=== PATIENT | female | born 1985 | race Caucasian/White ===

== ENCOUNTER → 2018-02-21 | Outpatient (CLI) | payer SELFPAY ==
--- NOTE | 2018-02-21 09:15 | Diagnostic Imaging Report ---
INDICATION: Right upper quadrant pain, nausea. TECHNIQUE: Multiple grayscale sonographic images were obtained of the right upper quadrant of the abdomen. CORRELATION STUDY: None FINDINGS: LIVER: There is uniform echotexture within the visualized portions of the liver. Liver length of 15.6 cm. GALLBLADDER: The gallbladder is significantly contracted despite being in a reported fasting state. No definitive shadowing gallstones. Gallbladder wall remains within normal limits despite the contracture. COMMON BILE DUCT: Nondilated at 3 mm. PANCREAS: Largely obscured. RIGHT KIDNEY: Measures 10.8 cm. No hydronephrosis. AORTA/IVC: Not well visualized. OTHER: None. IMPRESSION: 1. Gallbladder is largely contracted, limiting assessment. However, no findings to suggest significant cholelithiasis or bile duct dilatation. Dictated by: Dictated on workstation # [id number]
== END ==
LOC: RAD 08:31
PROVIDERS: ATTEND Nurse Practitioner Family
DX: K82.0 Obstruction of gallbladder (principal)
CPT/HCPCS: 76705

== ENCOUNTER → 2018-04-04 | Outpatient (CLI) | payer SELFPAY ==
[~2018-04-04] MED LIST: CATHETER FLUSH 10 ML SYR IV PRN
--- NOTE | 2018-04-04 14:36 | Diagnostic Imaging Report ---
INDICATION: Abdominal pain. EXAMINATION: Hepatobiliary scan. TECHNIQUE: 5.4 mCi of technetium 99m Choletec was given for the uptake. 8 ounces of Ensure was given 45 minutes into the exam for the ejection fraction. FINDINGS: There Is homogeneous uptake of isotope throughout the liver. The cystic duct and common duct are both patent. The gallbladder ejection fraction is calculated at 60%. IMPRESSION: Normal hepatobiliary scan and gallbladder ejection. Dictated by: Dictated on workstation # [id number]
== END ==
LOC: CARD 11:32
PROVIDERS: ATTEND Nurse Practitioner Family
DX: R10.11 Right upper quadrant pain (principal)
CPT/HCPCS: 78227

== ENCOUNTER → 2019-03-06 | Outpatient (CLI) | payer OTHER ==
--- NOTE | 2019-03-06 13:47 | Diagnostic Imaging Report ---
Indication: Palpable lumps in the left breast. No prior studies are available for comparison. 2-D and 3-D bilateral diagnostic mammography was performed with CAD. Both breasts show marked parenchymal heterogeneity and increased density, limiting the sensitivity of mammography. BB markers were placed at the areas of palpable abnormality in the left breast. One location is inferior and mid to posterior depth. Second location is in the lower inner left breast anterior depth. No underlying abnormality is seen. No mass or malignant-appearing microcalcifications are seen. Axillae are unremarkable. Impression: BI-RADS 0 No mammographic features suspicious for malignancy are identified. So, sonographic interrogation of the areas of palpable abnormality in the left breast is recommended and will be performed today. ACR BI-RADS Category 0: Incomplete. (Needs additional imaging evaluation). Result letter will be mailed to the patient. Note: At least 10% of breast cancer is not imaged by mammography. Dictated by: Dictated on workstation # [id number]
--- NOTE | 2019-03-06 19:51 | Diagnostic Imaging Report ---
INDICATION: Palpable lumps in left breast. FINDINGS: Sonographic interrogation of the areas of palpable lumps by the patient was performed. This corresponds to the inferior left breast as well as the lower-inner left breast. No sonographic abnormality is seen. There is heterogeneous breast tissue, but no discrete solid or cystic mass is detected. IMPRESSION: No sonographic abnormality is identified. Close clinical and self breast exam is recommended to confirm stability of the areas of palpable abnormality. ACR BI-RADS Category 1: Negative. Dictated by: Dictated on workstation # [id number]
== END ==
LOC: RAD 12:57
PROVIDERS: ATTEND Nurse Practitioner Family
DX: N63.24 Unspecified lump in the left breast, lower inner quadrant (principal)
CPT/HCPCS: 76642; 77066

== ENCOUNTER → 2019-04-03 | Outpatient (CLI) | payer OTHER ==
[~2019-04-03] MED LIST changes: +ACHD5005 PO; -CATHETER FLUSH 10 ML SYR IV PRN; +CHLO500T4 PO; +CLIN300C11 PO
--- NOTE | 2019-04-03 23:27 | Diagnostic Imaging Report ---
Left breast ultrasound limited. INDICATION: Left breast lump. FINDINGS: The recent left breast ultrasound exam performed on 03/06/2019 failed to show any discrete solid or cystic mass in the area of the patient's palpable abnormality in the lower inner quadrant of the left breast. In the interval since the prior exam, 2 small collections of fluid have developed in the retroareolar region of the left breast. These do not have the appearance of cysts but their precise etiology is not certain. There is still no discrete solid mass identified. However, if clinical concern regarding a palpable abnormality persists, then biopsy should still be considered. Dr. Avendaño was present at the time of this exam. IMPRESSION: A small amount of fluid has developed in the left retroareolar region but there is no discrete solid mass in the region of patient's palpable abnormality. Recommendations as above. ACR BI-RADS Category 1: Negative. Dictated by: Dictated on workstation # [id number]
== END ==
LOC: RAD 08:28
PROVIDERS: ATTEND Surgery
DX: N63.24 Unspecified lump in the left breast, lower inner quadrant (principal)
CPT/HCPCS: 76642

== ENCOUNTER 2019-04-04 11:04 | Outpatient (CLI) | payer OTHER ==
[~2019-04-04] VITALS: Ht 149.9 cm; Wt 54.4 kg
[2019-04-04] MEDS ORDERED: CLIN300C11 PO (13:58)
[2019-04-04] MEDS ORDERED: CHLO500T4 PO (13:58)
[2019-04-05] MEDS ORDERED: ACHD5005 PO (15:34)
== END 2019-04-04 14:02 | disposition home or self-care (01) ==
LOC: PREOP 11:04
PROVIDERS: ATTEND Surgery
DX: Z01.818 Encounter for other preprocedural examination (principal)

== ENCOUNTER 2019-04-05 12:02 | Day surgery (SDC) | payer OTHER ==
[2019-04-05] VITALS (10 sets, daily range): BP systolic 114–132; BP diastolic 73–96
[~2019-04-05] VITALS: Ht 149.9 cm; Wt 54.4 kg
[~2019-04-05 12:02] MED LIST changes: -ACHD5005 PO
[2019-04-05] MEDS ORDERED: LACTATED RINGERS 1,000 ML IV PRN (12:10)
[2019-04-05] MEDS ORDERED: ceFAZolin INJECTION 1,000 MG in WATER (STERILE) FOR INJECTION 10 ML IV ONE (12:15)
[2019-04-05] MEDS ORDERED: WATER (STERILE) FOR INJECTION 10 ML ONE (12:24)
[2019-04-05] MEDS ORDERED: ceFAZolin INJECTION 1,000 MG ONE (12:24)
--- OUTSIDE RECORDS SUMMARY | 2019-04-05 12:26 | XMS REPORT ---
Author Author Migration, Doctor Organization [facility] Address Unknown Phone Unavailable Care Team Providers Care Addictions Recovery Specialist Name Role Phone Migration, Doctor Unavailable Unavailable PROBLEMS Type Condition ICD9-CM Code STN97-KI Code Onset Dates Condition Status SNOMED Code Problem Encounter for removal of intrauterine contraceptive device V25.12 Active [id number] ALLERGIES No Information ENCOUNTERS Encounter Location Date Diagnosis [facility] [address] [id number] [id number] Mar, [facility] [address] [id number] February, Breast mass, left N63.20 and Galactorrhea N64.3 [facility] [address] [place], [place] [id number] [id number] February, [facility] [address] [place] [address] [id number] February, Galactorrhea N64.3 [facility] [address] [address] February, [facility] [address]00565[address] [address] February, Breast mass, left N63.20 and Galactorrhea N64.3 [facility] [address] [facility] [facility] [id number] [id number] Dec, [facility] [address] [id number][place] [id number] Mar, [facility] [address] [id number], [place] [phone] February, RUQ pain R10.11 and Nausea R11.0 [facility] [address] [id number] [id number] Jan, RUQ pain R10.11 and Nausea R11.0 [facility] [address] [id number], [place] [id number] Jan, Gastroenteritis K52.9 ; RUQ pain R10.11 and Nausea R11.[address] [id number], [place] [id number] Nov, Influenza J11.[address] [id number] [place] [id number] Aug, BMI 40.0-44.9, adult Z68.41 ; Pharyngitis, unspecified etiology J02.9 and Cough R05 [address] [id number][place] [id number] Jul, Gastroenteritis and colitis, viral A08.4 [facility] [address] [facility] [id number] [id number] Mar, Other noninfective acute otitis externa of left ear H60.592 and Acute serous otitis media of left ear, recurrence not specified H65.[address] [id number][place] [id number] Mar, Dermatitis L30.9 and Itching L29.9 [facility] [address] [place] [address] Jan, [facility] [address] [id number] [place] [address] Jan, [facility] [id number] [place] [address] Oct, [facility] [address] [address] Oct, [facility] [id number] [place] [address] Jan, [facility] [address] [address] Jan, [facility] [address] [facility] [id number] [place] [address] Sep, [facility] [address] [facility] [id number] [place] [address] Sep, [facility] [address] [facility] [id number] [place] [address] Aug, IMMUNIZATIONS No Known Immunizations SOCIAL HISTORY Never Assessed REASON FOR VISIT [facility]MR-[facility] PLAN OF CARE VITAL SIGNS MEDICATIONS Unknown Medications RESULTS No Results PROCEDURES No Known procedures INSTRUCTIONS MEDICATIONS ADMINISTERED No Known Medications MEDICAL (GENERAL) HISTORY Type Description Date Surgical History No Surgical history information
--- OUTSIDE RECORDS SUMMARY | 2019-04-05 12:27 | XMS REPORT | Continuity of Care Document ---
Author Organization Unknown Address Unknown Allergies Active Description Code Type Severity Reaction Onset Reported/Identified Relationship to Patient Clinical Status Yes No Allergy Information Available [id number] Drug Allergy Unknown N/A 04/04/2018 Medications There is no data. Problems Date Dx Coded Attending Type Code Diagnosis Diagnosed By 09/26/2012 SILVIO CASTELLANO MD 372.03 CONJUNCTIVITIS ACUTE BACTERIAL 09/26/2012 JENNIFER NEAL DO 372.03 CONJUNCTIVITIS ACUTE BACTERIAL 09/26/2012 372.03 CONJUNCTIVITIS ACUTE BACTERIAL 01/24/2013 SILVIO CASTELLANO MD 034.0 PHARYNGITIS STREPTOCOCCUS, GROUP A: BETA HEMOLYTIC 01/24/2013 JENNIFER NEAL DO 034.0 PHARYNGITIS STREPTOCOCCUS, GROUP A: BETA HEMOLYTIC 11/14/2014 JENNIFER NEAL DO V25.09 CONTRACEPTIVE COUNSELING - GENERAL 11/14/2014 JENNIFER NEAL DO V25.12 IUD REMOVAL 02/22/2018 BARNEY OBANDO APRN Ot K82.0 OBSTRUCTION OF GALLBLADDER 03/03/2018 BARNEY OBANDO APRN Ot K82.0 OBSTRUCTION OF GALLBLADDER 04/05/2018 BARNEY OBANDO APRN Ot R10.11 RIGHT UPPER QUADRANT PAIN 04/10/2018 BARNEY OBANDO APRN Ot R10.11 RIGHT UPPER QUADRANT PAIN 08/09/2018 BARNEY OBANDO DEPOSITION OPERATOR Ot K82.0 OBSTRUCTION OF GALLBLADDER 08/09/2018 BARNEY OBANDO APRN Ot R10.11 RIGHT UPPER QUADRANT PAIN 08/10/2018 BARNEY OBANDO DEPOSITION OPERATOR Ot R10.11 RIGHT UPPER QUADRANT PAIN 02/27/2019 BARNEY OBANDO DEPOSITION OPERATOR Ot K82.0 OBSTRUCTION OF GALLBLADDER 02/27/2019 BARNEY OBANDO DEPOSITION OPERATOR Ot R10.11 RIGHT UPPER QUADRANT PAIN 03/06/2019 BARNEY OBANDO DEPOSITION OPERATOR Ot K82.0 OBSTRUCTION OF GALLBLADDER 03/06/2019 BARNEY OBANDO DEPOSITION OPERATOR Ot R10.11 RIGHT UPPER QUADRANT PAIN 03/07/2019 JOSELUIS CRUZ DEPOSITION OPERATOR Ot N63.24 UNSPECIFIED LUMP IN THE LEFT BREAST, LOW Procedures Code Description [place] [address] STREP Fabiola (IN-HOUSE) 01/24/2013 [id number] IUD REMOVAL 11/14/2014 Results Test Result Range TSH w/ FREE T4 - 02/28/19 10:02 TSH 0.61 mIU/L NRG T4, FREE 1.1 ng/dL 0.8-1.8 CBC - 03/08/19 16:26 WHITE BLOOD CELL COUNT 7.0 Thousand/uL 3.8-10.8 RED BLOOD CELL COUNT 4.21 Million/uL 3.80-5.10 HEMOGLOBIN 11.6 g/dL 11.7-15.5 HEMATOCRIT 34.7 % 35.0-45.0 MCV 82.4 fL 80.0-100.0 MCH 27.6 pg 27.0-33.0 MCHC 33.4 g/dL 32.0-36.0 RDW 12.9 % 11.0-15.0 PLATELET COUNT 343 Thousand/uL 140-400 MPV 9.5 fL 7.5-12.5 ABSOLUTE NEUTROPHILS 3710 cells/uL 7548-6334 ABSOLUTE LYMPHOCYTES 2506 cells/uL 850-3900 ABSOLUTE MONOCYTES 413 cells/uL 200-950 ABSOLUTE EOSINOPHILS 364 cells/uL 15-500 ABSOLUTE BASOPHILS 7 cells/uL 0-200 NEUTROPHILS 53 % NRG LYMPHOCYTES 35.8 % NRG MONOCYTES 5.9 % NRG EOSINOPHILS 5.2 % NRG BASOPHILS 0.1 % NRG FSH, SERUM - 03/08/19 16:26 FSH 7.1 mIU/mL NRG LH - 03/08/19 16:26 LH 15.7 mIU/mL NRG CULTURE, ANAEROBIC AND AEROBIC - 03/08/19 16:35 CULTURE, ANAEROBIC BACTERIA W/GRAM STAIN SEE NOTE NRG CULTURE, AEROBIC BACTERIA SEE NOTE NRG Encounters ACCT No. Visit Date/Time Discharge Status Pt. Type Provider Facility Loc./Unit Complaint [id number] 03/08/2019 15:40:00 03/08/2019 23:59:59 [id number] 03/08/2019 15:40:00 Document Registration [id number] 02/28/2019 10:20:00 Document Registration [id number] 03/06/2019 12:57:00 03/06/2019 23:59:59 CLS Outpatient JOSELUIS CRUZ DEPOSITION OPERATOR [facility] RAD BREAST MASS [id number] 04/04/2018 11:32:00 04/04/2018 23:59:59 CLS Outpatient BARNEY OBANDO DEPOSITION OPERATOR [facility] CARD SEE ORDER [id number] 03/10/2018 10:00:00 03/10/2018 23:59:59 CLS Preadmit BARNEY OBANDO DEPOSITION OPERATOR [facility] CARD R10.11 RUQ PAIN [id number] 02/21/2018 08:31:00 02/21/2018 23:59:59 CLS Outpatient BARNEY OBANDO APRN [facility] RAD RUQ PAIN,NAUSEA [id number] 04/04/2019 11:04:00 ACT Outpatient NICOLAS CRAIG DO [facility] PREOP LEFT BREAST ABSCESS [id number] 04/03/2019 08:28:00 ACT Outpatient NICOLAS CRAIG DO [facility] RAD UNSPECIFIED LUMP LT BREAST [id number] 11/14/2014 10:04:00 11/14/2014 23:59:59 CLS Outpatient JENNIFER NEAL DO [id number] 01/24/2013 12:17:00 01/24/2013 23:59:59 [place] [id number] 09/26/2012 08:30:00 09/26/2012 23:59:59 CLS Outpatient
--- OUTSIDE RECORDS SUMMARY | 2019-04-05 12:27 | XMS REPORT ---
Author Author BARNEY OBANDO [facility] Address [address] [place] [address] Care Team Providers Care Block Layer Name Role Phone BARNEY OBANDO Unavailable PROBLEMS Type Condition ICD9-CM Code VEQ43-YR Code Onset Dates Condition Status SNOMED Code Problem Encounter for removal of intrauterine contraceptive device V25.12 Active [id number] ALLERGIES No Information ENCOUNTERS Encounter Location Date Diagnosis [address] [place] [id number] Mar, [place] [id number] [place] [id number] February, RUQ pain R10.11 and Nausea R11.[address] [place] [address] [id number] Jan, RUQ pain R10.11 and Nausea R11.[address] [place] [address] [id number] Jan, Gastroenteritis K52.9 ; RUQ pain R10.11 and Nausea R11.[address] [place] [address] [id number] Nov, Influenza J11.[address] [id number] [place] [address] [id number] Aug, BMI 40.0-44.9, adult Z68.41 ; Pharyngitis, unspecified etiology J02.9 and Cough R05 [id number] [place] [address] [id number] Jul, Gastroenteritis and colitis, viral A08.4 [facility] [address] [id number], [place] [id number] Mar, Other noninfective acute otitis externa of left ear H60.592 and Acute serous otitis media of left ear, recurrence not specified H65.02 [facility] [address] [id number][place] [id number] Mar, Dermatitis L30.9 and Itching L29.9 [facility] [address]005[address]100[place], [place] [address] Jan, [facility] [address], [place] [address] Jan, [facility] [address], [place] [address] Oct, [facility] [address]005[address]100[place], [place] [address] Oct, [facility] [address] [place] [address] Jan, [facility] [address], [place] [address] Jan, [facility] [address], [place] [address] Sep, [facility] [address], [place] [address] Sep, [facility] [address] [place] [address] [id number], [place] [address] Aug, IMMUNIZATIONS No Known Immunizations SOCIAL HISTORY Never Assessed REASON FOR VISIT PLAN OF CARE VITAL SIGNS MEDICATIONS Unknown Medications RESULTS Name Result Date Reference Range HIDA Scan 2018-04-05 PROCEDURES No Known procedures INSTRUCTIONS MEDICATIONS ADMINISTERED No Known Medications
--- OUTSIDE RECORDS SUMMARY | 2019-04-05 12:27 | XMS REPORT ---
Author Author GULSHAN SOMMER Organization [facility] Address [address] [place] [address] Care Team Providers Care Bottom Wheeler Name Role Phone ELPIDIOJACINTOAHMETGULSHAN Luz Unavailable PROBLEMS Type Condition ICD9-CM Code ITY33-KQ Code Onset Dates Condition Status SNOMED Code Problem Encounter for removal of intrauterine contraceptive device V25.12 Active [id number] ALLERGIES No Known Allergies ENCOUNTERS Encounter Location Date Diagnosis [id number] [place] [id number] Mar, [place] [id number] [place] [id number] February, RUQ pain R10.11 and Nausea R11.[address] [id number] [place] [address] [id number] Jan, RUQ pain R10.11 and Nausea R11.0 [address] [place] [address] [id number] Jan, Gastroenteritis K52.9 ; RUQ pain R10.11 and Nausea R11.[address] [id number] [place] [address] [id number] Nov, Influenza J11.[address] [id number] [place] [address] [id number] Aug, BMI 40.0-44.9, adult Z68.41 ; Pharyngitis, unspecified etiology J02.9 and Cough R05 [place] [address] [facility] [id number] [place] [address] [id number] Jul, Gastroenteritis and colitis, viral A08.4 [facility] [id number] [place] [address] [id number] Mar, Other noninfective acute otitis externa of left ear H60.592 and Acute serous otitis media of left ear, recurrence not specified H65.02 [facility] PER [address] [place] [address] AVE [id number] [place] [id number] Mar, Dermatitis L30.9 and Itching L29.9 [facility] [address]005[address], [place] [address] Jan, [facility] [address], [place] [address] Jan, [facility] [address] [place] [address] Oct, [facility] [address]005[address], [place] [address] Oct, [facility] [address] [place] [address] Jan, [facility] [address], [place] [address] Jan, [facility] [id number] [place] [address] Sep, [facility] [address], [place] [address] Sep, [facility] [address], [place] [address] Aug, IMMUNIZATIONS Vaccine Route Administration Date Status DEXAMETHASONE 4MG/ML (PER 1 MG) IM Intramuscular Sep 03, 2017 Administered DEPO MEDROL 40 MG/ML IM Intramuscular Sep 03, 2017 Administered SOCIAL HISTORY Never Assessed REASON FOR VISIT Cough and cold since wednesday taking otc meds, nothing is working windy gonzales PLAN OF CARE Activity Details Follow Up prn if not improved after 7-10 days Reason: VITAL SIGNS Height 50 in 2017-09-03 Weight 142.9 lbs 2017-09-03 Temperature 98.2 degrees Fahrenheit 2017-09-03 Heart Rate 78 bpm 2017-09-03 Respiratory Rate 18 2017-09-03 Oximetry 99 % 2017-09-03 BMI 40.18 kg/m2 2017-09-03 Blood pressure systolic 122 mmHg 2017-09-03 Blood pressure diastolic 76 mmHg 2017-09-03 MEDICATIONS Medication Instructions Dosage Frequency Start Date End Date Duration Status Promethazine-Codeine 6.25-10 MG/5ML Orally every 6 hrs 5 ml as needed 6h Aug, Aug, 10 days Active Benzonatate 200 mg Orally Three times a day 1 capsule as needed 8h Aug, Sep, 14 days Active RESULTS Name Result Date Reference Range STREP A (IN HOUSE) 2017-09-03 STREP A negative Control + Lot # [id number] Exp date 04/12 PROCEDURES Procedure Date Ordered Result Body Site MEASURE BLOOD OXYGEN LEVEL Sep 03, 2017 STREP A ASSAY W/OPTIC Sep 03, 2017 DEXAMETHASONE 4MG/ML (PER 1 MG) Sep 03, 2017 THER/PROPH/DIAG INJ, SC/IM Sep 03, 2017 DEPO MEDROL 40 MG/ML Sep 03, 2017 INSTRUCTIONS MEDICATIONS ADMINISTERED No Known Medications
--- OUTSIDE RECORDS SUMMARY | 2019-04-05 12:27 | XMS REPORT ---
Author Author OZ HURTADO Organization [facility] Address [address] [place] [address] Care Team Providers Care Yeast Culture Operator Name Role Phone OZ HURTADO Unavailable PROBLEMS Type Condition ICD9-CM Code MPT14-RO Code Onset Dates Condition Status SNOMED Code Problem Encounter for removal of intrauterine contraceptive device V25.12 Active 36768119 ALLERGIES No Information ENCOUNTERS Encounter Location Date Diagnosis [address] [place] [address] [id number] Mar, [place] [id number] [place] [address] [id number] February, RUQ pain R10.11 and Nausea R11.0 [address] [place] [address] [id number] Jan, RUQ pain R10.11 and Nausea R11.0 [place] [id number] [place] [address] [id number] Jan, Gastroenteritis K52.9 ; RUQ pain R10.11 and Nausea R11.0 [address] [place] [address] [id number] Nov, Influenza J11.[id number] [place] [address] [id number] Aug, BMI 40.0-44.9, adult Z68.41 ; Pharyngitis, unspecified etiology J02.9 and Cough R05 [id number] [place] [address] [id number] Jul, Gastroenteritis and colitis, viral A08.4 [facility] [address] [id number] [place] [id number] Mar, Other noninfective acute otitis externa of left ear H60.592 and Acute serous otitis media of left ear, recurrence not specified H65.[address] [id number] [id number] Mar, Dermatitis L30.9 and Itching L29.9 [facility] [address], [place] [address] Jan, [facility] [address], [place] [address] Jan, [facility] [address], [place] [address] Oct, [facility] [address], [place] [address] Oct, [facility] [address] [place] [address] Jan, [facility] [address], [place] [address] Jan, [facility] [address], [place] [address] Sep, [facility] [address], [place] [address] Sep, [facility] [address], [place] [address] Aug, IMMUNIZATIONS No Known Immunizations SOCIAL HISTORY Never Assessed REASON FOR VISIT Requests return call PLAN OF CARE VITAL SIGNS MEDICATIONS Unknown Medications RESULTS No Results PROCEDURES No Known procedures INSTRUCTIONS MEDICATIONS ADMINISTERED No Known Medications
--- OUTSIDE RECORDS SUMMARY | 2019-04-05 12:27 | XMS REPORT ---
Author Author BARNEY OBANDO [facility] Address [address] [place] [address] Care Team Providers Care Freight Agent Name Role Phone BARNEY OBANDO Unavailable PROBLEMS Type Condition ICD9-CM Code ASX24-HH Code Onset Dates Condition Status SNOMED Code Problem Encounter for removal of intrauterine contraceptive device V25.12 Active 50196287 ALLERGIES No Information ENCOUNTERS Encounter Location Date Diagnosis [id number] [place] [id number] Mar, [place] [id number] [place] [address] [id number] February, RUQ pain R10.11 and Nausea R11.[address] [place] [address] [id number] Jan, RUQ pain R10.11 and Nausea R11.[address] [place] [address] [id number] Jan, Gastroenteritis K52.9 ; RUQ pain R10.11 and Nausea R11.[address] [place] [address] [id number] Nov, Influenza J11.[id number] [place] [address] [id number] Aug, BMI 40.0-44.9, adult Z68.41 ; Pharyngitis, unspecified etiology J02.9 and Cough R05 [id number] [place] [address] [id number] Jul, Gastroenteritis and colitis, viral A08.4 [facility] [address] [id number] [id number] Mar, Other noninfective acute otitis externa of left ear H60.592 and Acute serous otitis media of left ear, recurrence not specified H65.02 [facility] [address] [place] [address] AVE [id number] [id number] Mar, Dermatitis L30.9 and Itching L29.9 [facility] [address] [address] Jan, [facility] [address] [address] Jan, [facility] [address] [address] Oct, [facility] [address] [address] Oct, [facility] [address] [address] Jan, [facility] [address] [address] Jan, [facility] [address] [address] Sep, [facility] [address] [address] Sep, [facility] [address] [place] [id number] [address] Aug, IMMUNIZATIONS No Known Immunizations SOCIAL HISTORY Never Assessed REASON FOR VISIT Requests return call PLAN OF CARE VITAL SIGNS MEDICATIONS Unknown Medications RESULTS Name Result Date Reference Range Ultrasound : Gallbladder 2018-02-22 PROCEDURES No Known procedures INSTRUCTIONS MEDICATIONS ADMINISTERED No Known Medications
--- OUTSIDE RECORDS SUMMARY | 2019-04-05 12:27 | XMS REPORT ---
Author Author OZ HURTADO Organization [facility] Address [address] [place] [address] Care Team Providers Care Automotive Detailer Name Role Phone OZ HURTADO Unavailable PROBLEMS Type Condition ICD9-CM Code UFG18-EQ Code Onset Dates Condition Status SNOMED Code Problem Encounter for removal of intrauterine contraceptive device V25.12 Active 45349215 ALLERGIES No Known Allergies ENCOUNTERS Encounter Location Date Diagnosis [address] [place] [address] [id number] February, RUQ pain R10.11 and Nausea R11.0 [place] [id number] [place] [address] [id number] Jan, RUQ pain R10.11 and Nausea R11.0 [place] [id number] [place] [address] [id number] Jan, Gastroenteritis K52.9 ; RUQ pain R10.11 and Nausea R11.0 [address] [place] [address] [id number] Nov, Influenza J11.1 [place] [id number] [place] [address] [id number] Aug, BMI 40.0-44.9, adult Z68.41 ; Pharyngitis, unspecified etiology J02.9 and Cough R05 [id number] [place] [address] [id number] Jul, Gastroenteritis and colitis, viral A08.4 [facility] [address] [id number] [id number] Mar, Other noninfective acute otitis externa of left ear H60.592 and Acute serous otitis media of left ear, recurrence not specified H65.02 [place] [address] [facility] [address] [id number] [id number] Mar, Dermatitis L30.9 and Itching L29.9 [facility] [address], [place] [address] 14 Jan, 2015 [facility] [address], [place] [address] Jan, [facility] [address], [place] [address] Oct, [facility] [address] [place] [address] Oct, [facility] [address], [place] [address] Jan, [facility] [address] [place] [address] Jan, [facility] [address], [place] [address] Sep, [facility] [address], [place] [address] Sep, [facility] [address], [place] [address] Aug, IMMUNIZATIONS No Known Immunizations SOCIAL HISTORY Never Assessed REASON FOR VISIT Vomiting and diarrhea for the past two days. No known fever. windy gonzales PLAN OF CARE Activity Details Follow Up prn Reason: VITAL SIGNS Height 50 in 2017-08-05 Weight 142.2 lbs 2017-08-05 Temperature 97.7 degrees Fahrenheit 2017-08-05 Heart Rate 84 bpm 2017-08-05 Respiratory Rate 18 2017-08-05 BMI 39.99 kg/m2 2017-08-05 Blood pressure systolic 110 mmHg 2017-08-05 Blood pressure diastolic 72 mmHg 2017-08-05 MEDICATIONS Medication Instructions Dosage Frequency Start Date End Date Duration Status Ondansetron HCl 8 MG Orally TID PRN 1 tablet as needed for n/v Jul, Active RESULTS Name Result Date Reference Range STREP A (IN HOUSE) 2017-08-05 STREP A NEGATIVE Control POSITIVE Lot # [id number] Exp date 04/12 PROCEDURES Procedure Date Ordered Result Body Site STREP A ASSAY W/OPTIC Aug 05, 2017 INSTRUCTIONS MEDICATIONS ADMINISTERED No Known Medications
--- OUTSIDE RECORDS SUMMARY | 2019-04-05 12:27 | XMS REPORT ---
Author Author BARNEY OBANDO [facility] Address [address] [place] [address] Care Team Providers Care White Spooler Name Role Phone BARNEY OBANDO Unavailable PROBLEMS Type Condition ICD9-CM Code WUY75-YU Code Onset Dates Condition Status SNOMED Code Problem Encounter for removal of intrauterine contraceptive device V25.12 Active 17808468 ALLERGIES No Known Allergies ENCOUNTERS Encounter Location Date Diagnosis [address] [place] [address] [id number] Mar, [place] [id number] [place] [address] [id number] February, RUQ pain R10.11 and Nausea R11.[address] [place] [address] [id number] Jan, RUQ pain R10.11 and Nausea R11.0 [address] [place] [address] [id number] Jan, Gastroenteritis K52.9 ; RUQ pain R10.11 and Nausea R11.[address] [place] [address] [id number] Nov, Influenza J11.[id number] [place] [address] [id number] Aug, BMI 40.0-44.9, adult Z68.41 ; Pharyngitis, unspecified etiology J02.9 and Cough R05 [id number] [place] [address] [id number] Jul, Gastroenteritis and colitis, viral A08.4 [facility] [address] [id number] [id number] Mar, Other noninfective acute otitis externa of left ear H60.592 and Acute serous otitis media of left ear, recurrence not specified H65.02 [facility] [address] [place] [address] AVE [id number] [id number] Mar, Dermatitis L30.[address] [facility] [address], [place] [address] Jan, [facility] [address] [address] Jan, [facility] [address] [place] [address] Oct, [facility] [address] [place] [address] Oct, [facility] [address] [id number] [place] [address] Jan, [facility] [address] [place] [address] Jan, [facility] [address] [place] [address] Sep, [facility] [address], [place] [address] Sep, [facility] [address], [place] [address] Aug, IMMUNIZATIONS No Known Immunizations SOCIAL HISTORY Never Assessed REASON FOR VISIT Vomiting for 3 days in the morning, nausea all day, diarrhea for 2 days---LAURA mccoy PLAN OF CARE Activity Details Follow Up prn Reason: VITAL SIGNS Height 50 in 2018-02-11 Weight 139.7 lbs 2018-02-11 Temperature 97.2 degrees Fahrenheit 2018-02-11 Heart Rate 72 bpm 2018-02-11 Respiratory Rate 16 2018-02-11 BMI 39.28 kg/m2 2018-02-11 Blood pressure systolic 112 mmHg 2018-02-11 Blood pressure diastolic 70 mmHg 2018-02-11 MEDICATIONS Medication Instructions Dosage Frequency Start Date End Date Duration Status Zofran 8 MG Orally Twice a day 1 tablet 12h Jan, 05 days Active Omeprazole 20 mg Orally Once a day 1 capsule 24h Jan, 30 day(s) Active RESULTS Name Result Date Reference Range TEST, URINE (IN HOUSE) 2018-02-11 RESULTS negative Lot # [id number] Control positive Exp date 06/24/2019 PROCEDURES Procedure Date Ordered Result Body Site URINE TEST February 11, 2018 INSTRUCTIONS MEDICATIONS ADMINISTERED No Known Medications
--- OUTSIDE RECORDS SUMMARY | 2019-04-05 12:27 | XMS REPORT ---
Author Author Migration, Doctor Organization [facility] Address Unknown Phone Unavailable Care Team Providers Care Batter Mixer Helper Name Role Phone Migration, Doctor Unavailable Unavailable PROBLEMS Type Condition ICD9-CM Code CED39-HD Code Onset Dates Condition Status SNOMED Code Problem Encounter for removal of intrauterine contraceptive device V25.12 Active 36327328 ALLERGIES No Information ENCOUNTERS Encounter Location Date Diagnosis [facility] [id number] Dec, [facility] [place] [id number] [place] [address] [id number] Mar, [facility] [place] [id number] [place] [address] [id number] February, RUQ pain R10.11 and Nausea R11.0 [address] [place] [address] [id number] Jan, RUQ pain R10.11 and Nausea R11.0 [place] [id number] [place] [address] [id number] Jan, Gastroenteritis K52.9 ; RUQ pain R10.11 and Nausea R11.0 [place] [id number] [place] [address] [id number] Nov, Influenza J11.[id number] [place] [address] [id number] Aug, BMI 40.0-44.9, adult Z68.41 ; Pharyngitis, unspecified etiology J02.9 and Cough R05 [id number] [place] [address] [id number] Jul, Gastroenteritis and colitis, viral A08.4 [facility] [address] [id number] [id number] Mar, Other noninfective acute otitis externa of left ear H60.592 and Acute serous otitis media of left ear, recurrence not specified H65.02 [facility] [place] [address] [place] [address] AVE [id number] [id number] Mar, Dermatitis L30.9 and Itching L29.9 [facility] [address], [place] [address] Jan, [facility] [address], [place] [address] Jan, [facility] [address], [place] [address] Oct, [facility] [address], [place] [address] Oct, [facility] [address], [place] [address] Jan, [facility] [address], [place] [address] Jan, [facility] [address], [place] [address] Sep, [facility] [address], [place] [address] Sep, [facility] [address] [place] [id number], [place] [address] Aug, IMMUNIZATIONS No Known Immunizations SOCIAL HISTORY Never Assessed REASON FOR VISIT [facility] PLAN OF CARE VITAL SIGNS MEDICATIONS Medication Instructions Dosage Frequency Start Date End Date Duration Status Ciprofloxacin 0.3 % 2 drop by Ophthalmic route every 4 hours for 7 day(s) Sep, Active Amoxicillin 500 mg 1 capsule by Oral route 3 times per day for 10 days Jan, Active RESULTS No Results PROCEDURES No Known procedures INSTRUCTIONS MEDICATIONS ADMINISTERED No Known Medications
--- NOTE | 2019-04-05 13:55 | Progress Note-Pre Operative ---
Pre-Operative Progress Note H&P Reviewed The H&P was reviewed, patient examined and no changes noted. Time Seen by Provider: 13:48 Date H&P Reviewed: Apr 05, 2019 Time H&P Reviewed: 13:49 Pre-Operative Diagnosis: Left breast mass, possible abscess NICOLAS CRAIG DO Apr 05, 2019 13:55
[2019-04-05] MEDS ORDERED: fentaNYL INJECTION 100 MCG/2 ML AMP ONE (14:20)
[2019-04-05] MEDS ORDERED: proPOfol 200 MG/20 ML (DIPRIVAN) VIAL IV ONE (14:20)
[2019-04-05] MEDS ORDERED: LIDOCAINE PF 2% 5 ML (XYLOCAINE) VIAL ONE (14:20)
[2019-04-05] MEDS ORDERED: MIDAZOLAM 2 MG/2 ML (VERSED) VIAL ONE (14:21)
[2019-04-05] MEDS ORDERED: ONDANSETRON 4 MG/2 ML (SDV) Z0FRAN ONE (14:24)
[2019-04-05] MEDS ORDERED: DEXAMETHASONE 10 MG/ML (DECADRON) 1 ML VIAL ONE (14:24)
[2019-04-05] MEDS ORDERED: BUP/EPI 0.5% 1:200,000 (SENSORCAINE) 30 ML VIAL ONE (14:27)
[2019-04-05] MEDS ORDERED: LIDOCAINE 1% INJ 20 ML 20 ML VIAL ONE (14:27)
[2019-04-05] MEDS ORDERED: SEVOFLURANE (ULTANE) 15 ML INHAL SOLN ONE (15:25)
--- NOTE | 2019-04-05 15:33 | Progress Note-Post Operative ---
Post-Operative Progess Note Surgeon (s)/Environmental Services Director (s) Surgeon NICOLAS CRAIG DO Environmental Services Director: none Pre-Operative Diagnosis Left breast mass, possible abscess Post-Operative Diagnosis same pending pathology and culture Procedure & Operative Findings Date of Procedure 04/05/19 Procedure Performed/Findings Left breast bx Left breast I&D with packing Anesthesia Type GET Estimated Blood Loss Estimated blood loss (mL): 25ml Specimens/Packing Specimens Removed Breast mass Tissue and fluid for culture NICOLAS CRAIG DO Apr 05, 2019 15:33
[2019-04-05] MEDS ORDERED: ACHD5005 PO (15:34)
--- NOTE | 2019-04-05 15:35 | Discharge Inst-Surgical ---
Discharge Inst-Surgical Depart Medication/Instructions New, Converted or Re-Newed RX: RX Given to Pt/Family Patient Instructions Follow up Appt: Make appointment for 1 week. [phone] Instructions: No strenuous activity. May shower in 24 hours, no tub bath or soaking. Use incentive spirometer at home as directed. No Smoking Skin/Wound Care: May remove bandages in am. You need to leave the Dermabond on incision it will fall off on it's own. Symptoms to Report: Appetite Changes, Extremity Discoloration, Numbness/Tingling, Swelling Increased, Bleeding Excessive, Eyesight Changes, Pain Increased, Urine Color Joy nge, Constipation(Persistent), Fever over 101 degree F, Pain/Pressure in chest, Urinating Difficulty, Cough Up/Vomit Blood, Heart Beat Irreg/Pounding, Pain/Pressure in jaw, Cramps in feet or legs, Lightheadedness, Pain/Pressure in shoulder, Diarrhea(Persistent), Memory Changes Suddenly, Questions/Concerns, Weight gain consecutive days, Dizziness/Fainting, Nausea/Vomiting, Shortness of Breath, Weight gain over 2 pounds If questions or concerns contact your physician Or seek help at emergency department. Activity Activity as Tolerated: Yes Driving Instructions: No Driving/Refer to Dr. Barrera Discharge Diet: No Restrictions Diet After 24 Hours: Clear Liquid if Nauseous If Any Problems/Questions/Issu: Contact Your Physician, Go to Emergency Room Skin/Wound Care Infection Signs and Symptoms: Increased Redness, Foul Odor of Wound, Increased Drainage, Skin Itchy or Has a Rash, Increased Swelling, Temperature Above 101 F Wound Care Comment: Packing will need to be changed daily Bathing Instructions: NICOLAS Zhao DO Apr 05, 2019 15:35
[2019-04-05] MEDS ORDERED: HYDROmorphone 2 MG/ML VIAL (DILAUDID) IV ONE (15:45)
[2019-04-05] MEDS ORDERED: PROMETHAZINE INJ 25 MG/ML (PHENERGAN) AMP IVP ONE (15:45)
[2019-04-05] MEDS ORDERED: ONDANSETRON 4 MG/2 ML (SDV) Z0FRAN IVP PRN (15:45)
[2019-04-05] MEDS ORDERED: MEPERIDINE (DEMEROL) INJ 50 MG/ML IVP ONE (15:45)
[2019-04-05] MEDS ORDERED: morphine INJ 10 MG/ML 1ML (SYR OR VIAL) IVP ONE (15:45)
[2019-04-05] MEDS ORDERED: HYDROcodone/APAP 5 MG/325 MG (LORTAB) TAB ONE (16:33)
[2019-04-05] MEDS ORDERED: HYDROcodone/APAP 5 MG/325 MG (LORTAB) TAB PO ONE (16:45)
--- NOTE | 2019-04-05 22:25 | OPERATIVE REPORT ---
DATE OF SERVICE: PREOPERATIVE DIAGNOSIS: Left breast mass. POSTOPERATIVE DIAGNOSIS: Left breast mass, pending pathology and cultures. PROCEDURES: 1. Left breast biopsy. 2. Incision and drainage with packing of left breast abscess. SURGEON: Toan Avendaño DO CABLE MACHINE OPERATOR: None. ANESTHESIA: General endotracheal tube. SPECIMEN: Left breast cultures and then tissue sent for pathology. BLOOD LOSS: Approximately 25 mL FLUIDS: Per anesthesia. POSTOPERATIVE CONDITION: Stable. INDICATION FOR PROCEDURE: The patient is a 33-year-old female who had a mass developed very quickly in the left breast and then got swollen and red. Ultrasound showed fluid collection, but no discrete mass. FINDINGS: The patient had what looked like some purulent and necrotic tissue and it is very firm tissue as well. Biopsy of this tissue was sent for pathology and cultures obtained from the rest of it. PROCEDURE NOTE: After informed consent was obtained, the patient was brought to the operating room, placed on the table in supine position. She was sterilely prepped and draped in normal fashion. Made an incision right along the 9 o'clock line with a #11 blade, carried down through the skin into subcutaneous tissue immediately got out what looked like some whitish material almost like pus. Elected to culture this and then opened this with some blunt dissection and saw a lot of necrotic tissue. Cut some of this tissue, sent it for culture as well and then took some of this tissue as well as some of the firm mass down to the base and cut this out with Bovie electrocautery sent for pathology. Then continued to kind of debrided and cut out all the rest of the necrotic tissue some more of it was sent for pathology. This extended all the way from about the 10 o'clock down to 6 o'clock area debrided with a Bovie electrocautery as well as some sharp dissection with a knife and some blunt dissection and then roughly debrided at the scene. Hemostasis obtained using Bovie electrocautery and then copiously irrigated with normal saline, suctioned this out and finally elected to pack with half inch iodoform packing. Area was cleaned around this and then pressure dressing placed with ABD over the packing. The patient tolerated the procedure. Sponge and needle count correct at the end of the case. Job ID: [id number] DocumentID: [id number] Dictated Date: 04/05/2019 15:29:52 Dyeing Machine Back Tender Date: 04/05/2019 22:24:31 Dictated By: TOAN AVENDAÑO DO
== END 2019-04-05 17:10 | disposition home or self-care (01) ==
LOC: SDC 12:02
PROVIDERS: ATTEND Surgery
DX: N61.1 Abscess of the breast and nipple (principal); N60.12 Diffuse cystic mastopathy of left breast; N63.24 Unspecified lump in the left breast, lower inner quadrant; Z11.2 Encounter for screening for other bacterial diseases; F41.9 Anxiety disorder, unspecified; F17.290 Nicotine dependence, other tobacco product, uncomplicated; Z80.3 Family history of malignant neoplasm of breast
CPT/HCPCS: 84703; 87070; 87075; 87081; 87205

== ENCOUNTER → 2023-02-24 | Outpatient (CLI) | payer OTHER ==
[~2023-02-24] MED LIST changes: +ACHD5005 PO; +CLIN-144 PO; -CLIN300C11 PO
--- NOTE | 2023-02-24 19:37 | Diagnostic Imaging Report ---
INDICATION: Bilateral breast pain and bilateral breast lumps. COMPARISON: Prior mammogram from 03/06/2019. EXAMINATION: 2D and 3D bilateral diagnostic mammography was performed with CAD. The current study was also evaluated with a Computer Aided Detection (CAD) system. FINDINGS: Both breasts are heterogeneously dense, limiting the sensitivity of mammography. The parenchymal pattern appears stable. No mass or malignant-appearing microcalcifications are identified. Axillae are unremarkable. IMPRESSION: No mammographic features suspicious for malignancy are identified. Dictated by: Dictated on workstation # [id number]
--- NOTE | 2023-02-24 19:38 | Diagnostic Imaging Report ---
INDICATION: Bilateral breast lumps and bilateral breast pain. EXAMINATION: Sonographic interrogation of all four quadrants of both breasts, as well as the retroareolar regions of both breasts, was performed. No sonographic abnormality is seen within either breast. No solid or cystic mass is detected. IMPRESSION: Unremarkable complete bilateral breast ultrasound. ACR BI-RADS Category 1: Negative. Result letter will be mailed to the patient. Note: At least 10% of breast cancer is not imaged by mammography. Dictated by: Dictated on workstation # [id number]
== END ==
LOC: RAD 13:45
PROVIDERS: ATTEND Nurse Practitioner Family
DX: N60.19 Diffuse cystic mastopathy of unspecified breast (principal); N63.10 Unspecified lump in the right breast, unspecified quadrant; N63.20 Unspecified lump in the left breast, unspecified quadrant
CPT/HCPCS: 76641; 77066; G0279; 77062